=== PATIENT | male | born 1995 | race Caucasian/White ===

== ENCOUNTER 2018-01-17 12:10 | Emergency (ER) | payer OTHER ==
[2018-01-17 12:35] VITALS: BP 112/59
--- NOTE | 2018-01-17 13:31 | UC ---
Complaint Male HPI - HPI Summary HPI Summary: Patient is a 22-year-old male presenting to the with request for STI testing. He states he was traveling and had unprotected intercourse with an individual. He believes this individual was free of STI is, however he wanted to make sure. History of chlamydia 5 years ago which was successfully treated with antibiotics. He denies any symptoms. Denies any fevers. Denies any lesions or discharge. - History of Current Complaint Chief Complaint: UCSTDScreening Stated Complaint: STI Time Seen by Provider: 01/17/18 13:08 Hx Obtained From: Patient Onset/Duration: Sudden Onset Timing: Constant Severity Currently: None Pain Intensity: 0 Pain Scale Used: 0-10 Numeric - Allergies/Home Medications Allergies/Adverse Reactions: Allergies Allergy/AdvReac Type Severity Reaction Status Date / Time No Known Allergies Allergy Verified 01/17/18 12:35 Home Medications: Home Medications NK [No Home Medications Reported] 01/17/18 [History Confirmed 01/17/18] PMH/Surg Hx/FS Hx/Imm Hx Previously Healthy: Yes - Surgical History Surgical History: Yes Surgery Procedure, Year, and Place: metal ana luisa leg femur - Social History Occupation: Employed Full-time Lives: Alone Alcohol Use: Occasionally Substance Use Type: Marijuana Substance Use Comment - Amount & Last Used: occasional Smoking Status (MU): Never Smoked Tobacco Review of Systems Constitutional: Negative Skin: Negative Eyes: Negative Respiratory: Negative Cardiovascular: Negative Genitourinary: Negative Musculoskeletal: Negative Neurological: Negative Is Patient Immunocompromised?: No All Other Systems Reviewed And Are Negative: Yes Physical Exam Triage Information Reviewed: Yes Appearance: Well-Appearing, No Pain Distress, Well-Nourished Vital Signs: Initial Vital Signs Temp 97.2 F 01/17/18 12:31 Pulse 80 01/17/18 12:31 Resp 16 01/17/18 12:31 BP 112/59 01/17/18 12:31 Pulse Ox 100 01/17/18 12:31 Vital Signs Reviewed: Yes Eye Exam: Normal Eyes: Positive: Conjunctiva Clear Neck exam: Normal Neck: Positive: Supple, No Lymphadenopathy Respiratory Exam: Normal Respiratory: Positive: Chest non-tender Cardiovascular Exam: Normal Musculoskeletal Exam: Normal Musculoskeletal: Positive: Strength Intact Neurological Exam: Normal Neurological: Positive: Alert Psychological: Positive: Normal Response To Family Skin Exam: Normal Complaint Male Course/Dx - Course Course Of Treatment: Labs for chlamydia, gonorrhea, HIV and syphilis obtained. Discussed with patient will call with any positive results. Patient remains symptom free. - Differential Dx/Diagnosis Provider Diagnoses: STI testing Discharge - Sign-Out/Discharge Documenting (check all that apply): Discharge/Admit/Transfer - Discharge Plan Condition: Stable Disposition: HOME Patient Education Materials: Sexually Transmitted Diseases (ED) Referrals: Kleber Patino MD [Primary Care Provider] - Additional Instructions: Will call with any positive results However, if you do not hear from us by Sunday, you may also give us a call If you develop any symptoms - do not have intercourse with a partner until you receive treatment - Billing Disposition and Condition Condition: STABLE Disposition: Home
== END 2018-01-17 13:57 | disposition home or self-care (01) ==
LOC: UCEAST 12:10
DX: Z20.2 Contact with and (suspected) exposure to infections with a predominantly sexual mode of transmission (principal)
CPT/HCPCS: 36415; 86592; 86703; 87491; 87591; 99211; G0463